=== PATIENT | male | born 1955 | race Caucasian/White ===

== ENCOUNTER 2018-08-07 10:18 | Day surgery (SDC) | payer BC, OTHER ==
[~2018-08-07] VITALS: Ht 167.6 cm; Wt 116.4 kg
[2018-08-07 11:14] VITALS: Ht 167.6 cm; Wt 116.4 kg
[2018-08-07 11:41] VITALS: BP 124/80; PULSE 75; RESP 12
--- NOTE | 2018-08-07 11:49 | PREAC ---
Date/Time of Note Date/Time of Note DATE: 08/07/18 TIME: 11:48 Anesthesia Eval and Record Evaluation Time Pre-Procedure Interview DATE: 08/07/18 TIME: 11:48 Age 62 Sex male NPO: 8 hrs Preoperative diagnosis chronic diarrhea Planned procedure colonoscopy Past Medical History Past Medical History: Includes Cardio: HTN, Dyslipidemia Endo: Diabetes Surgery & Anesthesia Issues No known issue Meds Anticoagulation: No Beta Bassem within 24 hr: No Reason Beta Bassem not given: Pt. not on B-Bassem Meds reviewed: Yes Allergies Coded Allergies: No Known Allergy (Verified , 06/14/11) Allergies Reviewed: Yes Labs/Studies Labs Reviewed: Reviewed by anesthesiologist test: N/A Studies: ECG (n/a), CXR (n/a) Pre-procedure Exam Last vitals Vital Signs Date Temp Pulse Resp B/P (MAP) Pulse Ox O2 O2 Flow FiO2 Time Delivery Rate 08/07/18 97.4 75 12 124/80 92 Room Air 11:41 (95) Airway: Adequate mouth opening Mallampati: Mallampati I Teeth: Normal Lung: Normal Heart: Normal ASA Physical Status ASA physical status: 2 Emergency: None Planned Anesthetic General/MAC: MAC Planned Pain Management Parenteral pain med Pre-operative Attestations Prior to commencing anesthesia and surgery, the patient was re-evaluated, there was verification of: *The patient's identity *The results of appropriate recent lab work and preoperative vital signs *The above evaluation not changing prior to induction *Anesthetic plan, risk benefits, alternative and complications discussed with patient/family; questions answered; patient/family understands, accepts and wishes to proceed. MONICA LOTT MD August 07, 2018 11:49
[2018-08-07] MEDS ORDERED: PROPOFOL 20 ML ONE ×2 (11:50→12:09)
[2018-08-07] MEDS ORDERED: FENTAnyl 50 MCG/ML VIAL ONE (11:50)
[2018-08-07] MEDS ORDERED: INHALER (11:51)
[2018-08-07] MEDS ORDERED: FLOMAX (11:51)
[2018-08-07] MEDS ORDERED: LOSARTAN (11:51)
[2018-08-07] MEDS ORDERED: FINASTERIDE (11:51)
[2018-08-07] MEDS ORDERED: GLIPIZIDE (11:51)
[2018-08-07] MEDS ORDERED: METFORMIN (11:51)
[2018-08-07] MEDS ORDERED: SIMVASTATIN (11:51)
[2018-08-07] MEDS ORDERED: ONDANSETRON 4 MG INJ IV PRN (12:00)
[2018-08-07 12:36] VITALS: BP 125/80; PULSE 68; RESP 16
--- NOTE | 2018-08-07 12:50 | PAC ---
Date/Time of Note Date/Time of Note DATE: 08/07/18 TIME: 12:50 Post-Anesthesia Notes Post-Anesthesia Note Last documented vital signs Vital Signs Date Temp Pulse Resp B/P (MAP) Pulse Ox O2 O2 Flow FiO2 Time Delivery Rate 08/07/18 97.4 75 12 124/80 92 Room Air 11:41 (95) Activity: WNL Respiratory function: WNL Cardiovascular function: WNL Mental status: Baseline Pain reasonably controlled: Yes Hydration appropriate: Yes Nausea/Vomiting absent: No MONICA LOTT MD August 07, 2018 12:50
== END 2018-08-07 13:43 | disposition home or self-care (01) ==
LOC: GIL 10:18
PROVIDERS: ATTEND Internal Medicine Gastroenterology
DX: R19.7 Diarrhea, unspecified (principal); K64.8 Other hemorrhoids; Z86.010 Personal history of colon polyps
CPT/HCPCS: 45380; 82962; 88305; J3010; Z7610